=== PATIENT | male | born 1960 ===

== ENCOUNTER 2020-06-12 09:38 | Inpatient (IN) ==
[2020-06-12] MEDS ORDERED: NS 0.9% 1000 ml BAG 1,000 ML IV ONE (09:51)
[2020-06-12] MEDS ORDERED: Morphine 4 MG/ML VIAL (1 ml) IV ONE ×3 (09:51→14:02)
[2020-06-12 10:51] LABS: ABS Basophils 0.1 10^3/ul (0-0.2); ABS Eosinophils 0.1 10^3/ul (0-0.6); ABS Lymphocytes 0.9 10^3/ul (1.0-4.8); ABS Monocytes 0.8 10^3/ul (0-0.8); Eosinophil % 0.7 %; Hematocrit 31 % (42-52); Hemoglobin 10.5 g/dL (14.0-18.0); Lymphocyte % 8.5 %; Mean Corpuscular HGB Conc 34 g/dL (31-36); Mean Corpuscular Hemoglobin 28 pg (27-31); Mean Corpuscular Volume 83 fL (80-94); Mean Platelet Volume 8.5 fL (7.4-10.4); Platelet Count 263 10^3/uL (150-450); Red Blood Count 3.77 10^6 /uL (4.18-5.48); Red Cell Distribution Width 15 % (10-15); White Blood Count 10.8 10^3/uL (3.5-10.8)
[2020-06-12 11:08] LABS: Albumin 3.8 g/dL (3.2-5.2); Albumin/Globulin Ratio 1.4 (1-3); BUN/Creatinine Ratio 14.6 (8-20); C Reactive Protein 64.22 mg/L (<8.01); Calcium 9.4 mg/dL (8.6-10.3); EGFR African American 217.4 (>60); EGFR Non-African American 179.7 (>60); Globulin 2.7 g/dL (2-4); Potassium 3.7 mmol/L (3.5-5.0); Total Bilirubin 0.6 mg/dL (0.2-1.0); Total Protein 6.5 g/dL (6.4-8.9)
[2020-06-12 11:09] LABS: Troponin I 0.01 ng/mL (<0.03)
[2020-06-12 13:33] LABS: Urine Appearance Clear; Urine Bilirubin Negative (Negative); Urine Blood Negative (Negative); Urine Color Yellow; Urine Glucose Negative (Negative); Urine Ketones 1+ (Negative); Urine Nitrite Negative (Negative); Urine Protein Negative (Negative); Urine Specific Gravity 1.008 (1.010-1.030); Urine Urobilinogen Negative (Negative)
[2020-06-12 13:37] LABS: Urine Bacteria Absent (Absent); Urine Red Blood Cell Trace(0-2/hpf) (Absent); Urine Squamous Epithelial Cell Present (Absent); Urine White Blood Cell Trace(0-5/hpf) (Absent)
[2020-06-12] MEDS ORDERED: HYDROmorphone 0.5 MG/0.5 ML SYRINGE IV ONE (14:18)
[2020-06-12] MEDS ORDERED: HYDROmorphone 0.5 MG/0.5 ML SYRINGE ONE (14:21)
[2020-06-12] MEDS: fentaNYL 100 mcg/2 ml 50 MCG/ML VIAL IV SLOW PU PRN ×2 (16:32→23:41)
[2020-06-12] MEDS: Morphine ER 30 mg TAB ** extended release PO SCH (16:33)
[2020-06-12] MEDS: Polyethylene Glycol 3350 17 GM PACKET PO PRN (16:33)
[2020-06-12] MEDS: Enoxaparin 40 MG/0.4 ML SYR SUBCUT SCH (16:33)
[2020-06-12] MEDS: Morphine ORAL.SOLN 10 mg 2 mg/ml UDC 5 ml (10 mg) PO PRN ×2 (17:59→21:32)
[2020-06-12] MEDS ORDERED: HYDROmorphone 0.5 MG/0.5 ML SYRINGE IV SLOW PU ONE (19:24)
[2020-06-12] MEDS: Lactulose 30 ml UDC PO PRN (19:51)
[2020-06-13] MEDS: Morphine ER 30 mg TAB ** extended release PO SCH ×3 (00:39→16:24)
[2020-06-13] MEDS: Morphine ORAL.SOLN 10 mg 2 mg/ml UDC 5 ml (10 mg) PO PRN ×6 (01:56→20:11)
[2020-06-13] MEDS: HYDROmorphone 0.5 MG/0.5 ML SYRINGE IV SLOW PU PRN ×4 (03:42→12:53)
[2020-06-13] MEDS: Polyethylene Glycol 3350 17 GM PACKET PO PRN (08:14)
[2020-06-13] MEDS: Lactulose 30 ml UDC PO PRN ×2 (08:14→22:29)
[2020-06-13] MEDS ORDERED: Iohexol 300 (CONTRAST) 10 ML SDV IV ONE (10:29)
[2020-06-13] MEDS: Enoxaparin 40 MG/0.4 ML SYR SUBCUT SCH (12:53)
[2020-06-13] MEDS: Dexamethasone IV 4 MG/ML VIAL 1 ml VIAL IV SLOW PU SCH (20:12)
[2020-06-14] MEDS: Morphine ER 30 mg TAB ** extended release PO SCH ×3 (02:31→17:21)
[2020-06-14] MEDS ORDERED: Influenza VAC *QUAD* 2020-21* 0.5 ML SYRINGE IM ONE (09:00)
[2020-06-14] MEDS: Dexamethasone IV 4 MG/ML VIAL 1 ml VIAL IV SLOW PU SCH ×2 (09:19→20:41)
[2020-06-14] MEDS: Morphine ORAL.SOLN 10 mg 2 mg/ml UDC 5 ml (10 mg) PO PRN ×3 (09:24→23:33)
[2020-06-14] MEDS ORDERED: HYDROmorphone 1 MG/1 ML SYRINGE IV SLOW PU PRN (09:36)
[2020-06-14] MEDS ORDERED: HYDROmorphone 1 MG/1 ML SYRINGE IV SLOW PU ONE (09:36)
[2020-06-14] MEDS: Enoxaparin 40 MG/0.4 ML SYR SUBCUT SCH (12:30)
[2020-06-14] MEDS ORDERED: Gadoteridol (CONTRAST) 279.3 MG/ML 10 ML IV ONE (19:33)
[2020-06-14] MEDS: Lactulose 30 ml UDC PO PRN (23:33)
[2020-06-15] MEDS: Morphine ER 30 mg TAB ** extended release PO SCH ×3 (03:15→18:09)
[2020-06-15 05:41] LABS: Hematocrit 30 % (42-52); Hemoglobin 10.2 g/dL (14.0-18.0); Mean Corpuscular HGB Conc 35 g/dL (31-36); Mean Corpuscular Hemoglobin 29 pg (27-31); Mean Corpuscular Volume 83 fL (80-94); Mean Platelet Volume 8.4 fL (7.4-10.4); Platelet Count 287 10^3/uL (150-450); Red Blood Count 3.56 10^6 /uL (4.18-5.48); Red Cell Distribution Width 15 % (10-15); White Blood Count 10.3 10^3/uL (3.5-10.8)
[2020-06-15 05:57] LABS: Albumin 3.7 g/dL (3.2-5.2); Albumin/Globulin Ratio 1.4 (1-3); C Reactive Protein 42.43 mg/L (<8.01); Calcium 9.6 mg/dL (8.6-10.3); EGFR African American 161.8 (>60); EGFR Non-African American 133.7 (>60); Globulin 2.6 g/dL (2-4); Potassium 4.5 mmol/L (3.5-5.0); Total Bilirubin 0.5 mg/dL (0.2-1.0); Total Protein 6.3 g/dL (6.4-8.9)
[2020-06-15] MEDS: Lactulose 30 ml UDC PO PRN (08:20)
[2020-06-15] MEDS: Dexamethasone IV 4 MG/ML VIAL 1 ml VIAL IV SLOW PU SCH ×4 (08:21→21:30)
[2020-06-15] MEDS: Polyethylene Glycol 3350 17 GM PACKET PO PRN (08:21)
[2020-06-15] MEDS: Morphine ORAL.SOLN 10 mg 2 mg/ml UDC 5 ml (10 mg) PO PRN ×4 (11:02→21:30)
[2020-06-15] MEDS: Enoxaparin 40 MG/0.4 ML SYR SUBCUT SCH (14:04)
[2020-06-15] MEDS: HYDROmorphone 0.5 MG/0.5 ML SYRINGE IV SLOW PU PRN ×2 (16:02→19:55)
[2020-06-16] MEDS: Morphine ER 30 mg TAB ** extended release PO SCH ×4 (02:54→21:23)
[2020-06-16] MEDS: Morphine ORAL.SOLN 10 mg 2 mg/ml UDC 5 ml (10 mg) PO PRN ×4 (04:26→18:48)
[2020-06-16] MEDS: Dexamethasone IV 4 MG/ML VIAL 1 ml VIAL IV SLOW PU SCH ×4 (07:38→21:25)
[2020-06-16] MEDS: HYDROmorphone 0.5 MG/0.5 ML SYRINGE IV SLOW PU PRN (07:39)
[2020-06-16] MEDS ORDERED: Morphine ER 30 mg TAB ** extended release PO ONE (09:40)
[2020-06-16] MEDS: HYDROmorphone 1 MG/1 ML SYRINGE IV SLOW PU PRN (11:31)
[2020-06-16] MEDS: Enoxaparin 40 MG/0.4 ML SYR SUBCUT SCH ×2 (13:46→13:52)
[2020-06-16] MEDS ORDERED: Morphine ER 30 mg TAB ** extended release PO SCH (14:00)
[2020-06-17] MEDS: Morphine ER 30 mg TAB ** extended release PO SCH ×3 (06:08→20:34)
[2020-06-17] MEDS: Morphine ORAL.SOLN 10 mg 2 mg/ml UDC 5 ml (10 mg) PO PRN ×2 (09:34→20:32)
[2020-06-17] MEDS: Dexamethasone IV 4 MG/ML VIAL 1 ml VIAL IV SLOW PU SCH ×4 (09:34→20:35)
[2020-06-17] MEDS: HYDROmorphone 1 MG/1 ML SYRINGE IV SLOW PU PRN ×2 (10:05→12:56)
[2020-06-17] MEDS: Enoxaparin 40 MG/0.4 ML SYR SUBCUT SCH (12:47)
[2020-06-17] MEDS ORDERED: Senna TAB 8.6 mg TAB PO PRN (15:11)
[2020-06-17] MEDS ORDERED: Polyethylene Glycol 3350 17 GM PACKET PO PRN (15:11)
[2020-06-17] MEDS ORDERED: Magnesium Hydroxide LIQ 30 ML UDC PO PRN (15:11)
[2020-06-17] MEDS: Magnesium Hydroxide LIQ 30 ML UDC PO SCH (20:35)
[2020-06-18] MEDS: Morphine ER 30 mg TAB ** extended release PO SCH ×3 (06:01→23:20)
[2020-06-18 07:18] LABS: BUN/Creatinine Ratio 39.6 (8-20); Calcium 9.3 mg/dL (8.6-10.3); EGFR African American 193.9 (>60); EGFR Non-African American 160.2 (>60); Potassium 4.4 mmol/L (3.5-5.0)
[2020-06-18] MEDS: Magnesium Hydroxide LIQ 30 ML UDC PO SCH ×2 (08:09→19:50)
[2020-06-18] MEDS: Dexamethasone IV 4 MG/ML VIAL 1 ml VIAL IV SLOW PU SCH ×4 (08:10→23:20)
[2020-06-18] MEDS: HYDROmorphone 1 MG/1 ML SYRINGE IV SLOW PU PRN ×2 (10:50→14:19)
[2020-06-18] MEDS: Morphine ORAL.SOLN 10 mg 2 mg/ml UDC 5 ml (10 mg) PO PRN ×2 (14:07→19:42)
[2020-06-18] MEDS: Enoxaparin 40 MG/0.4 ML SYR SUBCUT SCH (14:07)
[2020-06-19] MEDS: Morphine ORAL.SOLN 10 mg 2 mg/ml UDC 5 ml (10 mg) PO PRN ×3 (03:06→19:43)
[2020-06-19] MEDS: Morphine ER 30 mg TAB ** extended release PO SCH ×3 (06:17→21:58)
[2020-06-19] MEDS: Magnesium Hydroxide LIQ 30 ML UDC PO SCH ×2 (09:52→19:54)
[2020-06-19] MEDS: Dexamethasone IV 4 MG/ML VIAL 1 ml VIAL IV SLOW PU SCH (10:11)
[2020-06-19] MEDS: Enoxaparin 40 MG/0.4 ML SYR SUBCUT SCH (13:45)
[2020-06-19] MEDS: HYDROmorphone 1 MG/1 ML SYRINGE IV SLOW PU PRN (22:38)
[2020-06-20] MEDS: Morphine ORAL.SOLN 10 mg 2 mg/ml UDC 5 ml (10 mg) PO PRN ×6 (00:25→23:18)
[2020-06-20] MEDS: HYDROmorphone 1 MG/1 ML SYRINGE IV SLOW PU PRN ×5 (03:08→20:37)
[2020-06-20] MEDS: Morphine ER 30 mg TAB ** extended release PO SCH ×3 (05:22→22:25)
[2020-06-20] MEDS: Magnesium Hydroxide LIQ 30 ML UDC PO SCH ×2 (12:01→20:52)
[2020-06-20] MEDS: Lidocaine PATCH 5% PATCH TRANSDERM SCH (12:02)
[2020-06-20] MEDS: Enoxaparin 40 MG/0.4 ML SYR SUBCUT SCH (14:51)
[2020-06-20] MEDS ORDERED: Lidocaine Patch REMOVE PATCH PATCH OFF SCH (21:00)
[2020-06-21] MEDS: Morphine ORAL.SOLN 10 mg 2 mg/ml UDC 5 ml (10 mg) PO PRN (04:44)
[2020-06-21] MEDS: Morphine ER 30 mg TAB ** extended release PO SCH (06:03)
[2020-06-21] MEDS: Magnesium Hydroxide LIQ 30 ML UDC PO SCH (08:19)
[2020-06-21] MEDS: Lidocaine PATCH 5% PATCH TRANSDERM SCH (08:22)
[2020-06-21 09:22] VITALS: BP 111/68
== END 2020-06-21 09:24 | disposition swing bed (61) | DRG 40 ==
LOC: ED 09:38 → MED 15:57
PROVIDERS: ADMIT Student in an Organized Health Care Education/Training Program; ATTEND Internal Medicine